=== PATIENT | male | born 1980 | race Caucasian/White ===

== ENCOUNTER 2022-07-13 15:35 | Inpatient (IN) | payer MEDICAID ==
[~2022-07-13] VITALS: Ht 162.6 cm; Wt 69.4 kg
[2022-07-13] VITALS (11 sets, daily range): BP systolic 76–95; BP diastolic 43–55
[~2022-07-13 15:35] MED LIST: ETOMIDATE 2MG/ML 10ML VIAL IV ONE; SODIUM CHLORIDE 0.9% 10ML VIAL ONE; VECURONIUM BROMIDE 10 MG/VIAL IV ONE
[2022-07-13] MEDS ORDERED: SODIUM CHLORIDE 0.9% 1,000 ML IV ONE ×2 (15:45→16:15)
[2022-07-13] MEDS ORDERED: NOREPINEPHRINE 8MG/250ML PMX 250 ML IV STA (16:08)
[2022-07-13] MEDS ORDERED: PROPOFOL 10MG/ML 100ML 100 ML IV ONE (16:15)
[2022-07-13] MEDS ORDERED: NOREPINEPHRINE 8 MG in DEXTROSE 5% WATER 250 ML IV PRN (16:30)
[2022-07-13] MEDS ORDERED: CALCIUM CHLORIDE 1GM/10ML SYR IV ONE (16:45)
[2022-07-13] MEDS ORDERED: SODIUM BICARBONATE 8.4% 1 MEQ/ML 50ML SYR IV ONE (16:45)
[2022-07-13] MEDS ORDERED: ALBUTEROL (0.083%) 2.5MG/3ML NEB HHN ONE (16:45)
[2022-07-13 16:53] LABS: INR 1.1; PROTHROMBIN TIME 11.4 sec (9.6-11.0)
[2022-07-13 16:54] LABS: CHLORIDE 97 mEq/L (98-107)
[2022-07-13 16:55] LABS: HEMATOCRIT. 55.1 % (42.0-52.0); HEMOGLOBIN. 15.4 g/dL (14.0-18.0); MEAN CORPUSCULAR VOLUME 114.5 fL (80.0-94.0); MEAN PLATELET VOLUME 8.7 fl (7.4-10.4); PLATELET 392 x1000/uL (130-400); RED BLOOD CELL COUNT 4.81 mill/uL (4.7-6.1); RED CELL DISTRIBUTION WIDTH 15.9 % (11.6-14.6)
[2022-07-13 17:07] LABS: BG BASE EXCESS -19.6 mmol/L (-2.0-2.0); BG CARBOXYHEMOGLOBIN 0.1 % (0.5-1.5); BG DEOXYHEMOGLOBIN 0.7 % (0.0-5.0); BG FRACTION INSPIRED OXYGEN 100; BG HCO3 ACT 9.2 mmol/L (22.0-26.0); BG METHEMOGLOBIN 0.4 % (0.0-1.5); BG OXYGEN SATURATION 99.3 % (92.0-98.5); BG OXYHEMOGLOBIN 98.8 % (94.0-97.0); BG PCO2 31.4 mmHg (35.0-45.0); BG PH 7.085 (7.350-7.450); BG PO2 576.1 mmHg (75.0-100.0); BG SAMPLE SITE RIGHT BRACHIAL; BG TOTAL HEMOGLOBIN 13.8 g/dL (12.0-18.0); BG VENT MODE VENT - AC
[2022-07-13] MEDS ORDERED: SODIUM CHLORIDE 0.9% 1,000 ML IV STA (17:17)
[2022-07-13] MEDS ORDERED: DOPAMINE 400MG/250ML PREMIX 250 ML IV STA (17:29)
[2022-07-13] MEDS ORDERED: INSULIN REGULAR 100U/100ML PMX 100 ML IV NR ×2 (17:30→17:45)
[2022-07-13] MEDS ORDERED: VANCOMYCIN 1G PREMIX 200 ML IV NR (17:45)
[2022-07-13] MEDS ORDERED: PIPERACILLIN/TAZ 3.375G PREMIX 50 ML IV NR (17:45)
[2022-07-13 17:49] LABS: CLARITY URINE CLEAR (CLEAR); COLOR URINE YELLOW (YELLOW); KETONES URINE 3+ (NEGATIVE); LEUKOCYTE ESTERASE URINE NEGATIVE (NEGATIVE); NITRITE URINE NEGATIVE (NEGATIVE); OCCULT BLOOD URINE TRACE (NEGATIVE); PROTEIN URINE 2+ (NEGATIVE); SPECIFIC GRAVITY URINE 1.025 (1.005-1.030); UROBILINOGEN URINE 0.2 E.U./dL (0.2-1.0)
[2022-07-13] MEDS ORDERED: FENTANYL CITRATE/PF 2,500 MCG in SODIUM CHLORIDE 0.9% 200 ML IV PRN ×2 (18:00→19:15)
[2022-07-13] MEDS ORDERED: MIDAZOLAM HCL 100 MG in SODIUM CHLORIDE 0.9% 80 ML IV PRN ×2 (18:00→19:15)
[2022-07-13] MEDS ORDERED: PHENYLEPHRINE 100 MG in DEXT 5% WATER 240 ML IV PRN (18:00)
[2022-07-13] MEDS ORDERED: IPRATROPIUM/ALBUTEROL 0.5-3(2.5)MG/3ML NEB HHN PRN (18:00)
[2022-07-13] MEDS ORDERED: PHENYLEPHRINE 50 MG in DEXT 5% WATER 245 ML IV STA (18:06)
[2022-07-13 18:12] LABS: PLATELET ESTIMATE NORMAL
[2022-07-13] MEDS ORDERED: SODIUM BICARBONATE 8.4% 1 MEQ/ML 50ML SYR IV NR (19:00)
[2022-07-13] MEDS ORDERED: EPINEPHRINE 5 MG in SODIUM CHLORIDE 0.9% 245 ML IV PRN (19:00)
[2022-07-13] MEDS: SODIUM BICARBONATE 100 MEQ in SODIUM CHLORIDE 0.45% 1,000 ML IV SCH (19:04)
[2022-07-13 19:12] LABS: BETA HYDROXYBUTYRATE 13.6 mMol/L (0.0-0.3)
[2022-07-13 19:18] LABS: PHOSPHORUS 13.2 mg/dL (2.5-4.9)
[2022-07-13] MEDS ORDERED: ONDANSETRON HCL 4MG/2ML INJ IV PRN (19:30)
[2022-07-13] MEDS ORDERED: SODIUM BICARBONATE 8.4% 1 MEQ/ML 50ML SYR IV SCH (20:00)
[2022-07-13] MEDS: BLOOD SUGAR DIAGNOSTIC STRIP TEST SCH ×2 (22:00→23:56)
[2022-07-13 22:05] LABS: PHOSPHORUS 8.4 mg/dL (2.5-4.9)
[2022-07-13] MEDS ORDERED: DEXTROSE 50% WATER 50ML SYRINGE IV PRN ×2 (22:15)
[2022-07-13] MEDS: NOREPINEPHRINE 32 MG in DEXT 5% WATER 218 ML IV PRN (22:42)
[2022-07-13] MEDS: EPINEPHRINE 5 MG in SODIUM CHLORIDE 0.9% 245 ML IV PRN (22:44)
[2022-07-13] MEDS: DOPAMINE 400MG/250ML PREMIX 250 ML IV PRN (22:46)
[2022-07-13] MEDS: INSULIN REGULAR 100U/100ML PMX 100 ML IV SCH (23:19)
[2022-07-13] MEDS: AZITHROMYCIN 250 MG in DEXT 5% WATER 250 ML IV SCH (23:20)
[2022-07-14] VITALS (96 sets, daily range): BP systolic 25–144; BP diastolic 16–106
[2022-07-14] MEDS: BLOOD SUGAR DIAGNOSTIC STRIP TEST SCH ×18 (00:20→18:55)
[2022-07-14] MEDS: PHENYLEPHRINE 100 MG in DEXT 5% WATER 240 ML IV PRN ×4 (00:21→23:40)
[2022-07-14] MEDS ORDERED: INSULIN REGULAR (HUMULIN R) 300UNITS/3ML VIAL IV NR (01:00)
[2022-07-14] MEDS: IPRATROPIUM/ALBUTEROL 0.5-3(2.5)MG/3ML NEB HHN SCH ×4 (01:34→20:54)
[2022-07-14] MEDS: INSULIN REGULAR 100U/100ML PMX 100 ML IV SCH ×2 (03:02→04:38)
[2022-07-14 03:05] LABS: PHOSPHORUS 1.9 mg/dL (2.5-4.9)
[2022-07-14] MEDS ORDERED: POTASSIUM CHLORIDE INJ 60 MEQ in DEXT 5% WATER 250 ML IV ONE (03:30)
[2022-07-14] MEDS: SODIUM BICARBONATE 100 MEQ in SODIUM CHLORIDE 0.45% 1,000 ML IV SCH (03:40)
[2022-07-14] MEDS: KCL 20MEQ/100ML PREMIX 100 ML IV NR ×3 (03:51→07:47)
[2022-07-14] MEDS: EPINEPHRINE 5 MG in SODIUM CHLORIDE 0.9% 245 ML IV PRN (03:52)
[2022-07-14 05:36] LABS: BASOPHILS % 0.1 % (0.0-2.0); HEMATOCRIT. 41.1 % (42.0-52.0); HEMOGLOBIN. 14.1 g/dL (14.0-18.0); LYMPHOCYTES % 9.2 % (20.0-50.0); MEAN CORPUSCULAR HEMOGLOBIN 32.6 pg (28.0-32.0); MEAN CORPUSCULAR VOLUME 95.3 fL (80.0-94.0); MEAN PLATELET VOLUME 7.7 fl (7.4-10.4); MONOCYTES % 11.9 % (2.0-8.0); NEUTROPHILS % 78.8 % (40.0-76.0); PLATELET 345 x1000/uL (130-400); RED BLOOD CELL COUNT 4.31 mill/uL (4.7-6.1); RED CELL DISTRIBUTION WIDTH 13.8 % (11.6-14.6)
[2022-07-14] MEDS: NOREPINEPHRINE 32 MG in DEXT 5% WATER 218 ML IV PRN (05:38)
[2022-07-14] MEDS: DOPAMINE 400MG/250ML PREMIX 250 ML IV PRN (05:39)
[2022-07-14 06:14] LABS: BG BASE EXCESS 3.1 mmol/L (-2.0-2.0); BG CARBOXYHEMOGLOBIN 0.1 % (0.5-1.5); BG DEOXYHEMOGLOBIN 1.6 % (0.0-5.0); BG FRACTION INSPIRED OXYGEN 40; BG HCO3 ACT 24.1 mmol/L (22.0-26.0); BG METHEMOGLOBIN 0.1 % (0.0-1.5); BG OXYGEN SATURATION 98.4 % (92.0-98.5); BG OXYHEMOGLOBIN 98.2 % (94.0-97.0); BG PCO2 27.3 mmHg (35.0-45.0); BG PH 7.563 (7.350-7.450); BG PO2 166.3 mmHg (75.0-100.0); BG SAMPLE SITE LEFT BRACHIAL; BG TOTAL HEMOGLOBIN 14.4 g/dL (12.0-18.0); BG VENT MODE VENT - AC
[2022-07-14 06:32] LABS: PHOSPHORUS 0.3 mg/dL (2.5-4.9)
[2022-07-14] MEDS ORDERED: SODIUM CHLORIDE 0.45% 1,000 ML IV SCH (07:45)
[2022-07-14] MEDS: PANTOPRAZOLE SODIUM 40 MG/VIAL IV SCH (08:34)
[2022-07-14] MEDS: CEFEPIME 2,000 MG in DEXT 5% WATER 100 ML IV SCH ×2 (08:35→21:28)
[2022-07-14] MEDS ORDERED: KCL 20MEQ/100ML PREMIX 100 ML IV NR (09:00)
[2022-07-14] MEDS ORDERED: ENOXAPARIN 30MG/0.3ML SYR SUBCUT SCH (09:00)
[2022-07-14] MEDS ORDERED: POTASSIUM PHOS,M-BASIC-D-BASIC 20 MMOL in DEXT 5% WATER 243.3333 ML IV ONE ×2 (11:00→16:00)
[2022-07-14 11:13] LABS: CHLORIDE 124 mEq/L (98-107)
[2022-07-14 11:39] LABS: HDL CHOLESTEROL 45 mg/dL (40-59); LDL CHOLESTEROL 73 mg/dL (5-100); T4 FREE 1.02 ng/dL (0.76-1.46)
[2022-07-14 13:04] LABS: PHOSPHORUS < 0.1 mg/dL (2.5-4.9)
[2022-07-14] MEDS: ACETAMINOPHEN 650MG/20.3ML UDC PO PRN (13:51)
[2022-07-14] MEDS ORDERED: ENOXAPARIN 30MG/0.3ML SYR SUBCUT NR (14:15)
[2022-07-14] MEDS: DEXT 5%/0.45% NACL 1000ML 1,000 ML IV SCH ×3 (15:46→23:39)
[2022-07-14] MEDS ORDERED: DEXTROSE 50% WATER 50ML SYRINGE IV PRN (16:30)
[2022-07-14 16:45] LABS: *AMPHETAMINES SCREEN URINE NEGATIVE (NEGATIVE); *BARBITURATES SCREEN URINE NEGATIVE (NEGATIVE); *BENZODIAZEPINES SCREEN URINE NEGATIVE (NEGATIVE); *COCAINE SCREEN URINE NEGATIVE (NEGATIVE); CANNABINOID URINE SCREEN NEGATIVE (NEGATIVE); METHADONE URINE SCREEN NEGATIVE (NEGATIVE); OPIATES URINE SCREEN NEGATIVE (NEGATIVE); PHENCYCLIDINE URINE SCREEN NEGATIVE (NEGATIVE)
[2022-07-14] MEDS: MIDODRINE HCL 5MG TABLET PO SCH (17:09)
[2022-07-14] MEDS ORDERED: BLOOD SUGAR DIAGNOSTIC STRIP TEST SCH (17:50)
[2022-07-14 18:13] LABS: CHLORIDE 118 mEq/L (98-107)
[2022-07-14 18:20] LABS: CREATINE KINASE 608 IU/L (39-308); ETHANOL BLOOD < 10 mg/dL; PHOSPHORUS 3.1 mg/dL (2.5-4.9)
[2022-07-14] MEDS ORDERED: INSULIN LISPRO 100 UNITS/ML SUBCUT SCH (18:20)
[2022-07-14] MEDS ORDERED: ENOXAPARIN 60MG/0.6ML SYR SUBCUT SCH (21:00)
[2022-07-14] MEDS: AZITHROMYCIN 250 MG in DEXT 5% WATER 250 ML IV SCH (21:28)
[2022-07-14 22:18] LABS: CHLORIDE 114 mEq/L (98-107)
[2022-07-14 22:26] LABS: PHOSPHORUS 3.2 mg/dL (2.5-4.9)
[2022-07-14] MEDS: ENOXAPARIN 60MG/0.6ML SYR SUBCUT SCH (23:41)
[2022-07-15] VITALS (99 sets, daily range): BP systolic 79–116; BP diastolic 51–83
[2022-07-15] MEDS: BLOOD SUGAR DIAGNOSTIC STRIP TEST SCH ×5 (00:34→23:48)
[2022-07-15] MEDS: INSULIN LISPRO 100 UNITS/ML SUBCUT SCH ×5 (00:56→23:57)
[2022-07-15 00:57] LABS: CHLORIDE 112 mEq/L (98-107)
[2022-07-15 01:02] LABS: PHOSPHORUS 2.1 mg/dL (2.5-4.9)
[2022-07-15] MEDS: IPRATROPIUM/ALBUTEROL 0.5-3(2.5)MG/3ML NEB HHN SCH ×4 (01:45→20:44)
[2022-07-15] MEDS ORDERED: INSULIN REGULAR (HUMULIN R) 300UNITS/3ML VIAL SUBCUT NR (02:00)
[2022-07-15] MEDS ORDERED: FENTANYL 2500MCG/250ML PMX 250 ML IV PRN (04:00)
[2022-07-15] MEDS ORDERED: FENTANYL CITRATE/PF 2,500 MCG in SODIUM CHLORIDE 0.9% 200 ML IV PRN ×2 (04:15→14:45)
[2022-07-15] MEDS ORDERED: POTASSIUM PHOS,M-BASIC-D-BASIC 20 MMOL in DEXT 5% WATER 243.3333 ML IV NR (05:30)
[2022-07-15 05:48] LABS: BASOPHILS % 0.2 % (0.0-2.0); EOSINOPHILS % 0.8 % (0.0-5.0); HEMATOCRIT. 35.3 % (42.0-52.0); HEMOGLOBIN. 11.9 g/dL (14.0-18.0); LYMPHOCYTES % 21.6 % (20.0-50.0); MEAN CORPUSCULAR HEMOGLOBIN 32.3 pg (28.0-32.0); MEAN CORPUSCULAR VOLUME 95.7 fL (80.0-94.0); MEAN PLATELET VOLUME 8.1 fl (7.4-10.4); MONOCYTES % 6.4 % (2.0-8.0); PLATELET 183 x1000/uL (130-400); RED BLOOD CELL COUNT 3.69 mill/uL (4.7-6.1); RED CELL DISTRIBUTION WIDTH 14.3 % (11.6-14.6)
[2022-07-15 05:49] LABS: CHLORIDE 114 mEq/L (98-107)
[2022-07-15 05:56] LABS: PHOSPHORUS 1.6 mg/dL (2.5-4.9)
[2022-07-15] MEDS: DEXT 5%/0.45% NACL 1000ML 1,000 ML IV SCH (06:13)
[2022-07-15] MEDS: ACETAMINOPHEN 650MG/20.3ML UDC PO PRN (06:39)
[2022-07-15] MEDS ORDERED: LIDOCAINE HCL 1% 30ML VIAL (10MG/ML) ONE (07:35)
[2022-07-15] MEDS ORDERED: SODIUM CHLORIDE 0.45% 1,000 ML IV ONE (08:00)
[2022-07-15] MEDS ORDERED: POTASSIUM PHOS,M-BASIC-D-BASIC 20 MMOL in DEXT 5% WATER 243.3333 ML IV ONE (08:00)
[2022-07-15 09:00] LABS: BG BASE EXCESS -0.4 mmol/L (-2.0-2.0); BG CARBOXYHEMOGLOBIN 0.1 % (0.5-1.5); BG FRACTION INSPIRED OXYGEN 30; BG HCO3 ACT 22.1 mmol/L (22.0-26.0); BG METHEMOGLOBIN 0.3 % (0.0-1.5); BG OXYHEMOGLOBIN 97.6 % (94.0-97.0); BG PCO2 29.8 mmHg (35.0-45.0); BG PH 7.489 (7.350-7.450); BG PO2 120.4 mmHg (75.0-100.0); BG SAMPLE SITE RIGHT RADIAL; BG TOTAL HEMOGLOBIN 11.5 g/dL (12.0-18.0); BG TOTAL RESPIRATORY RATE 18 b/min; BG VENT MODE VENT - AC
[2022-07-15] MEDS: MIDODRINE HCL 5MG TABLET PO SCH ×3 (09:26→17:48)
[2022-07-15] MEDS: PANTOPRAZOLE SODIUM 40 MG/VIAL IV SCH (09:26)
[2022-07-15] MEDS: PHENYLEPHRINE 100 MG in DEXT 5% WATER 240 ML IV PRN (09:30)
[2022-07-15] MEDS ORDERED: INSULIN GLARGINE 100 UNITS/ML SUBCUT SCH (12:00)
[2022-07-15] MEDS: ENOXAPARIN 60MG/0.6ML SYR SUBCUT SCH ×2 (12:07→23:54)
[2022-07-15] MEDS ORDERED: VANCOMYCIN 1.25GM PMX (XELLIA) 250 ML IV NR (12:30)
[2022-07-15] MEDS ORDERED: MAGNESIUM 2 G PREMIX 50 ML IV NR (16:24)
[2022-07-15] MEDS: DILTIAZEM HCL 30MG TABLET PO SCH ×2 (17:48→23:48)
[2022-07-15] MEDS: CEFEPIME 2,000 MG in DEXT 5% WATER 100 ML IV SCH (20:43)
[2022-07-15] MEDS: AZITHROMYCIN 250 MG in DEXT 5% WATER 250 ML IV SCH (20:47)
[2022-07-15] MEDS ORDERED: VANCOMYCIN 1G PREMIX 200 ML IV SCH (21:00)
[2022-07-15] MEDS: VANCOMYCIN 750MG PREMIX 150 ML IV SCH (22:34)
[2022-07-15] MEDS: INSULIN GLARGINE 100 UNITS/ML SUBCUT SCH (23:56)
[2022-07-16] VITALS (48 sets, daily range): BP systolic 92–120; BP diastolic 64–80
[2022-07-16] MEDS: IPRATROPIUM/ALBUTEROL 0.5-3(2.5)MG/3ML NEB HHN SCH ×4 (01:49→20:06)
[2022-07-16] MEDS: DILTIAZEM HCL 30MG TABLET PO SCH ×4 (05:34→23:56)
[2022-07-16] MEDS: BLOOD SUGAR DIAGNOSTIC STRIP TEST SCH ×4 (05:39→23:56)
[2022-07-16] MEDS: VANCOMYCIN 750MG PREMIX 150 ML IV SCH (05:49)
[2022-07-16] MEDS: INSULIN LISPRO 100 UNITS/ML SUBCUT SCH ×3 (05:54→17:36)
[2022-07-16 06:18] LABS: CHLORIDE 105 mEq/L (98-107)
[2022-07-16 06:23] LABS: PHOSPHORUS 1.6 mg/dL (2.5-4.9)
[2022-07-16 09:13] LABS: BG BASE EXCESS 4.1 mmol/L (-2.0-2.0); BG CARBOXYHEMOGLOBIN 0.5 % (0.5-1.5); BG FRACTION INSPIRED OXYGEN 30; BG HCO3 ACT 25.5 mmol/L (22.0-26.0); BG METHEMOGLOBIN 0.3 % (0.0-1.5); BG OXYHEMOGLOBIN 97.2 % (94.0-97.0); BG PCO2 28.7 mmHg (35.0-45.0); BG PH 7.567 (7.350-7.450); BG SAMPLE SITE RIGHT RADIAL; BG TOTAL HEMOGLOBIN 12.4 g/dL (12.0-18.0); BG VENT MODE VENT - AC
[2022-07-16] MEDS ORDERED: POTASSIUM PHOS,M-BASIC-D-BASIC 20 MMOL in DEXT 5% WATER 243.3333 ML IV NR (09:30)
[2022-07-16] MEDS: MIDODRINE HCL 5MG TABLET PO SCH ×3 (09:55→16:44)
[2022-07-16] MEDS: PANTOPRAZOLE SODIUM 40 MG/VIAL IV SCH (09:55)
[2022-07-16] MEDS: INSULIN GLARGINE 100 UNITS/ML SUBCUT SCH ×2 (09:59→16:36)
[2022-07-16 11:11] LABS: BASOPHILS % 0.2 % (0.0-2.0); EOSINOPHILS % 2.4 % (0.0-5.0); HEMATOCRIT. 36.8 % (42.0-52.0); HEMOGLOBIN. 12.3 g/dL (14.0-18.0); LYMPHOCYTES % 18.7 % (20.0-50.0); MEAN CORPUSCULAR HEMOGLOBIN 31.7 pg (28.0-32.0); MEAN CORPUSCULAR VOLUME 95.1 fL (80.0-94.0); MEAN PLATELET VOLUME 8.5 fl (7.4-10.4); MONOCYTES % 4.7 % (2.0-8.0); PLATELET 143 x1000/uL (130-400); RED BLOOD CELL COUNT 3.87 mill/uL (4.7-6.1); RED CELL DISTRIBUTION WIDTH 14.2 % (11.6-14.6)
[2022-07-16 11:42] LABS: BG BASE EXCESS 2.4 mmol/L (-2.0-2.0); BG CARBOXYHEMOGLOBIN 0.2 % (0.5-1.5); BG DEOXYHEMOGLOBIN 2.6 % (0.0-5.0); BG FRACTION INSPIRED OXYGEN 30; BG HCO3 ACT 25.4 mmol/L (22.0-26.0); BG METHEMOGLOBIN 0.3 % (0.0-1.5); BG OXYGEN SATURATION 97.4 % (92.0-98.5); BG OXYHEMOGLOBIN 96.9 % (94.0-97.0); BG PH 7.491 (7.350-7.450); BG PO2 101.4 mmHg (75.0-100.0); BG SAMPLE SITE RIGHT RADIAL; BG TOTAL HEMOGLOBIN 12.6 g/dL (12.0-18.0); BG VENT MODE VENT - CPAP
[2022-07-16] MEDS: ENOXAPARIN 60MG/0.6ML SYR SUBCUT SCH (11:48)
[2022-07-16] MEDS: LORAZEPAM 2MG/ML CPJ IV PRN (14:10)
[2022-07-16] MEDS: DEXT 5%/0.45% NACL 1000ML 1,000 ML IV SCH (16:35)
[2022-07-16] MEDS: AZITHROMYCIN 250 MG in DEXT 5% WATER 250 ML IV SCH (21:25)
[2022-07-16] MEDS: CEFEPIME 2,000 MG in DEXT 5% WATER 100 ML IV SCH (21:25)
[2022-07-17] VITALS (30 sets, daily range): BP systolic 101–143; BP diastolic 54–95
[2022-07-17] MEDS: INSULIN LISPRO 100 UNITS/ML SUBCUT SCH ×5 (00:01→23:26)
[2022-07-17] MEDS: IPRATROPIUM/ALBUTEROL 0.5-3(2.5)MG/3ML NEB HHN SCH ×4 (02:08→20:26)
[2022-07-17] MEDS: LORAZEPAM 2MG/ML CPJ IV PRN ×3 (02:16→21:57)
[2022-07-17] MEDS: DEXT 5%/0.45% NACL 1000ML 1,000 ML IV SCH ×2 (02:16→18:42)
[2022-07-17 04:53] LABS: CHLORIDE 107 mEq/L (98-107)
[2022-07-17 05:00] LABS: PHOSPHORUS 2.2 mg/dL (2.5-4.9)
[2022-07-17] MEDS: BLOOD SUGAR DIAGNOSTIC STRIP TEST SCH ×4 (05:17→23:25)
[2022-07-17] MEDS: DILTIAZEM HCL 30MG TABLET PO SCH ×4 (05:17→23:25)
[2022-07-17 08:08] LABS: BASOPHILS % 0.3 % (0.0-2.0); EOSINOPHILS % 2.8 % (0.0-5.0); HEMATOCRIT. 35.2 % (42.0-52.0); HEMOGLOBIN. 11.7 g/dL (14.0-18.0); LYMPHOCYTES % 18.1 % (20.0-50.0); MEAN CORPUSCULAR HEMOGLOBIN 31.9 pg (28.0-32.0); MEAN CORPUSCULAR VOLUME 95.9 fL (80.0-94.0); MEAN PLATELET VOLUME 9.1 fl (7.4-10.4); MONOCYTES % 7.6 % (2.0-8.0); NEUTROPHILS % 71.2 % (40.0-76.0); PLATELET 143 x1000/uL (130-400); RED BLOOD CELL COUNT 3.68 mill/uL (4.7-6.1); RED CELL DISTRIBUTION WIDTH 14.3 % (11.6-14.6)
[2022-07-17] MEDS: INSULIN GLARGINE 100 UNITS/ML SUBCUT SCH ×2 (09:00→17:00)
[2022-07-17] MEDS: PANTOPRAZOLE SODIUM 40 MG/VIAL IV SCH (09:22)
[2022-07-17] MEDS: MIDODRINE HCL 5MG TABLET PO SCH ×3 (09:23→17:57)
[2022-07-17] MEDS: ENOXAPARIN 60MG/0.6ML SYR SUBCUT SCH ×3 (09:23→23:25)
[2022-07-17] MEDS ORDERED: POTASSIUM PHOS,M-BASIC-D-BASIC 20 MMOL in DEXT 5% WATER 243.3333 ML IV NR (10:00)
[2022-07-17] MEDS: CEFEPIME 2,000 MG in DEXT 5% WATER 100 ML IV SCH (20:17)
[2022-07-17] MEDS: AZITHROMYCIN 250 MG in DEXT 5% WATER 250 ML IV SCH (21:20)
[2022-07-18] VITALS (24 sets, daily range): BP systolic 97–151; BP diastolic 30–102
[2022-07-18] MEDS: IPRATROPIUM/ALBUTEROL 0.5-3(2.5)MG/3ML NEB HHN SCH ×4 (00:35→20:21)
[2022-07-18] MEDS: BLOOD SUGAR DIAGNOSTIC STRIP TEST SCH ×4 (05:18→23:56)
[2022-07-18] MEDS: DILTIAZEM HCL 30MG TABLET PO SCH ×3 (05:18→18:12)
[2022-07-18] MEDS: INSULIN LISPRO 100 UNITS/ML SUBCUT SCH ×3 (05:30→18:00)
[2022-07-18 05:43] LABS: HEMATOCRIT. 36.9 % (42.0-52.0); HEMOGLOBIN. 12.6 g/dL (14.0-18.0); MEAN CORPUSCULAR VOLUME 93.9 fL (80.0-94.0); MEAN PLATELET VOLUME 8.6 fl (7.4-10.4); PLATELET 276 x1000/uL (130-400); RED BLOOD CELL COUNT 3.93 mill/uL (4.7-6.1); RED CELL DISTRIBUTION WIDTH 14.1 % (11.6-14.6)
[2022-07-18 06:08] LABS: CHLORIDE 101 mEq/L (98-107)
[2022-07-18 06:21] LABS: PHOSPHORUS 2.3 mg/dL (2.5-4.9)
[2022-07-18] MEDS ORDERED: POTASSIUM-SODIUM PHOSPHATE POWDER PACKET PO SCH (09:00)
[2022-07-18] MEDS: PANTOPRAZOLE SODIUM 40 MG/VIAL IV SCH (09:02)
[2022-07-18] MEDS: MIDODRINE HCL 5MG TABLET PO SCH ×3 (09:02→18:12)
[2022-07-18] MEDS: DEXT 5%/0.45% NACL 1000ML 1,000 ML IV SCH (10:09)
[2022-07-18] MEDS: ENOXAPARIN 60MG/0.6ML SYR SUBCUT SCH (10:09)
[2022-07-18] MEDS: INSULIN GLARGINE 100 UNITS/ML SUBCUT SCH ×2 (10:10→21:28)
[2022-07-18 10:45] LABS: PLATELET ESTIMATE NORMAL
[2022-07-18] MEDS: POTASSIUM-SODIUM PHOSPHATE POWDER PACKET PO SCH (14:08)
[2022-07-18] MEDS: CEFEPIME 2,000 MG in DEXT 5% WATER 100 ML IV SCH (21:26)
[2022-07-18] MEDS: ENOXAPARIN 80MG/0.8ML SYR SUBCUT SCH (21:26)
[2022-07-19] VITALS (20 sets, daily range): BP systolic 92–157; BP diastolic 55–98
[2022-07-19] MEDS: INSULIN LISPRO 100 UNITS/ML SUBCUT SCH ×3 (00:07→13:11)
[2022-07-19] MEDS: DILTIAZEM HCL 30MG TABLET PO SCH ×3 (00:07→13:09)
[2022-07-19 05:23] LABS: HEMATOCRIT. 35.4 % (42.0-52.0); HEMOGLOBIN. 12.4 g/dL (14.0-18.0); MEAN CORPUSCULAR HEMOGLOBIN 32.5 pg (28.0-32.0); MEAN CORPUSCULAR VOLUME 92.7 fL (80.0-94.0); MEAN PLATELET VOLUME 7.5 fl (7.4-10.4); PLATELET 435 x1000/uL (130-400); RED BLOOD CELL COUNT 3.82 mill/uL (4.7-6.1); RED CELL DISTRIBUTION WIDTH 13.7 % (11.6-14.6)
[2022-07-19 05:28] LABS: CHLORIDE 107 mEq/L (98-107)
[2022-07-19] MEDS: BLOOD SUGAR DIAGNOSTIC STRIP TEST SCH ×2 (05:39→12:55)
[2022-07-19] MEDS: PANTOPRAZOLE SODIUM 40 MG/VIAL IV SCH (08:20)
[2022-07-19] MEDS: POTASSIUM-SODIUM PHOSPHATE POWDER PACKET PO SCH (08:21)
[2022-07-19] MEDS: MIDODRINE HCL 5MG TABLET PO SCH ×2 (08:21→13:10)
[2022-07-19] MEDS: ENOXAPARIN 80MG/0.8ML SYR SUBCUT SCH (08:21)
[2022-07-19 08:23] LABS: PLATELET ESTIMATE INCREASED
[2022-07-19] MEDS: INSULIN GLARGINE 100 UNITS/ML SUBCUT SCH (08:41)
[2022-07-19] MEDS: ACETAMINOPHEN 325MG TABLET PO PRN ×2 (09:18→13:09)
[2022-07-19] MEDS ORDERED: IPRATROPIUM/ALBUTEROL 0.5-3(2.5)MG/3ML NEB HHN SCH (12:00)
== END 2022-07-19 17:22 | DRG 720 ==
LOC: ER 15:35 → CVICU 17:40 → UNDOADMIN 17:40 → MICUSO 17:40
PROVIDERS: ADMIT Internal Medicine; ATTEND Internal Medicine
PROC: 5A1945Z Respiratory Ventilation, 24-96 Consecutive Hours (ICD-10-PCS; principal; 2022-07-13)
PROC: 5A09357 Assistance with Respiratory Ventilation, Less than 24 Consecutive Hours, Continuous Positive Airway Pressure (ICD-10-PCS; 2022-07-13)
PROC: 0BH17EZ Insertion of Endotracheal Airway into Trachea, Via Natural or Artificial Opening (ICD-10-PCS; 2022-07-13)
PROC: 06HY33Z Insertion of Infusion Device into Lower Vein, Percutaneous Approach (ICD-10-PCS; 2022-07-13)
PROC: 02HV33Z Insertion of Infusion Device into Superior Vena Cava, Percutaneous Approach (ICD-10-PCS; 2022-07-15)
PROC: B548ZZA Ultrasonography of Superior Vena Cava, Guidance (ICD-10-PCS; 2022-07-15)
DX: A41.89 Other specified sepsis (principal); J96.01 Acute respiratory failure with hypoxia; G93.41 Metabolic encephalopathy; E11.10 Type 2 diabetes mellitus with ketoacidosis without coma; R57.1 Hypovolemic shock; R65.21 Severe sepsis with septic shock; I82.411 Acute embolism and thrombosis of right femoral vein; I48.92 Unspecified atrial flutter; E86.0 Dehydration; I48.0 Paroxysmal atrial fibrillation; N17.9 Acute kidney failure, unspecified; E87.0 Hyperosmolality and hypernatremia; E87.1 Hypo-osmolality and hyponatremia; E83.39 Other disorders of phosphorus metabolism; E87.5 Hyperkalemia; G30.0 Alzheimer's disease with early onset; E87.6 Hypokalemia; E11.22 Type 2 diabetes mellitus with diabetic chronic kidney disease; I12.9 Hypertensive chronic kidney disease with stage 1 through stage 4 chronic kidney disease, or unspecified chronic kidney disease; F31.9 Bipolar disorder, unspecified; F02.80 Dementia in other diseases classified elsewhere, unspecified severity, without behavioral disturbance, psychotic disturbance, mood disturbance, and anxiety; N18.1 Chronic kidney disease, stage 1; B96.89 Other specified bacterial agents as the cause of diseases classified elsewhere; E86.9 Volume depletion, unspecified; E86.1 Hypovolemia; F20.9 Schizophrenia, unspecified; Z79.899 Other long term (current) drug therapy
CPT/HCPCS: 31500; 36415; 36573; 36600; 71045; 76770; 78580; 80048; 80053; 80061; 80202; 80305; 80320; 81003; 82010; 82140; 82375; 82550; 82805; 82962; 83036; 83605; 83735; 83880; 84100; 84145; 84439; 84443; 84484; 85025; 85379; 87070; 87077; 92610; 93005; 93306; 93970; 94002; 94003; 94640; 94644; 99291; C1725; C1893; C9113; J0456; J0692; J1265; J1650; J1815; J2060; J2250; J2370; J2405; J2543; J2704; J3010; J3370; J3475; J3480; J3490; J7030; J7050; J7060; A4315; G0480